=== PATIENT | female | born 1950 | race African-American/Black ===

== ENCOUNTER 2024-07-24 16:11 | Emergency (ER) | payer OTHER ==
[~2024-07-24] VITALS: Ht 165.1 cm; Wt 75.0 kg
[2024-07-24 16:14] VITALS: O2SAT 95
[2024-07-24] MEDS ORDERED: EPINEPHRINE 5 MG in SODIUM CHLORIDE 0.9% 245 ML IV STA (16:29)
[2024-07-24] MEDS: ASPIRIN 325MG TABLET PO ONE (16:30)
[2024-07-24] MEDS ORDERED: ATROPINE SULFATE 1MG/10ML SYR IV ONE (16:30)
[2024-07-24 16:53] LABS: BASOPHILS % 0.7 % (0.0-2.0); EOSINOPHILS % 2.5 % (0.0-5.0); HEMATOCRIT. 38.5 % (36.0-48.0); HEMOGLOBIN. 12.5 g/dL (12.0-16.0); LYMPHOCYTES % 42.2 % (20.0-50.0); MEAN CORPUSCULAR HEMOGLOBIN 27.7 pg (28.0-32.0); MEAN CORPUSCULAR HGB CONC 32.5 g/dL (31.0-37.0); MEAN CORPUSCULAR VOLUME 85.2 fL (81.0-99.0); MEAN PLATELET VOLUME 8.4 fl (7.4-10.4); MONOCYTES % 7.8 % (2.0-8.0); NEUTROPHILS % 46.8 % (40.0-76.0); PLATELET 327 x1000/uL (130-400); RED BLOOD CELL COUNT 4.52 mill/uL (4.2-5.4); WHITE BLOOD COUNT 7.2 x1000/uL (4.5-11.0)
[2024-07-24 17:00] LABS: CHLORIDE 104 mEq/L (98-107); POTASSIUM 3.6 mEq/L (3.5-5.1); SODIUM 140 mEq/L (136-145)
[2024-07-24] MEDS ORDERED: EPINEPHRINE 5 MG in SODIUM CHLORIDE 0.9% 245 ML IV PRN (17:00)
[2024-07-24 17:01] LABS: CARBON DIOXIDE 29 mEq/L (21-32)
[2024-07-24 17:02] LABS: CALCIUM 9.4 mg/dL (8.7-10.4)
[2024-07-24 17:06] LABS: CREATININE 1.5 mg/dL (0.6-1.0); GLUCOSE 140 mg/dL (70-105); TROPONIN I HIGH SENSITIVITY 8 ng/L (3.0-34); UREA NITROGEN BLOOD 21 mg/dL (9-23)
[2024-07-24] MEDS ORDERED: DOPAMINE 400MG/250ML PREMIX 250 ML IV PRN (17:30)
[2024-07-24] MEDS: SODIUM CHLORIDE 0.9% IV PRN (17:43)
[2024-07-24] MEDS: EPINEPHRINE IV PRN (17:43)
[2024-07-24 18:00] VITALS: TEMP 36.78072
[2024-07-24] MEDS ORDERED: ACETAMINOPHEN 325MG TABLET PO PRN (18:15)
[2024-07-24] MEDS ORDERED: IPRATROPIUM/ALBUTEROL 0.5-3(2.5)MG/3ML NEB HHN PRN (18:15)
[2024-07-24] MEDS ORDERED: DOCUSATE SODIUM 100MG CAPSULE PO PRN (18:15)
[2024-07-24] MEDS ORDERED: DEXTROSE 50% WATER 50ML SYRINGE IV PRN (18:45)
[2024-07-24] MEDS: SODIUM CHLORIDE 0.9% 1,000 ML IV SCH (19:03)
[2024-07-24 19:18] LABS: TRIGLYCERIDE 102 mg/dL (0-150)
[2024-07-24 19:19] LABS: LDL CHOLESTEROL 96 mg/dL (5-100)
[2024-07-24 19:20] LABS: CHOLESTEROL 151 mg/dL (<200); HDL CHOLESTEROL 33 mg/dL (>65); PHOSPHORUS 2.8 mg/dL (2.5-4.9)
[2024-07-24 19:24] LABS: T4 FREE 1.53 ng/dL (0.89-1.76); THYROID STIMULATING HORMONE 2.21 uIU/mL (0.55-4.78)
[2024-07-24 19:54] LABS: TROPONIN I HIGH SENSITIVITY 44 ng/L (3.0-34)
[2024-07-24] MEDS: ATORVASTATIN CALCIUM 20MG TABLET PO SCH (21:00)
[2024-07-24] MEDS: INSULIN LISPRO 100 UNITS/ML SUBCUT SCH (21:00)
[2024-07-24] MEDS ORDERED: NICARDIPINE 40MG/200ML PREMIX 200 ML IV PRN (21:15)
[2024-07-24] MEDS: BLOOD SUGAR DIAGNOSTIC STRIP TEST SCH (21:19)
[2024-07-24] MEDS: ENOXAPARIN 40MG/0.4ML SYR SUBCUT SCH (21:31)
[2024-07-24] MEDS: ACETAMINOPHEN 325MG TABLET PO PRN (22:14)
[2024-07-24] MEDS: ONDANSETRON HCL 4MG/2ML INJ IV PRN (22:21)
[2024-07-25 01:40] LABS: CREATINE KINASE MB FRACTION 2.4 ng/mL (0.5-3.6)
[2024-07-25 02:10] LABS: INR 1.1; PARTIAL THROMBOPLASTIN TIME 31.2 sec (23.4-31.0); PROTHROMBIN TIME 12.2 sec (9.6-11.0)
[2024-07-25] MEDS: AMLODIPINE 5MG TABLET PO SCH (09:04)
[2024-07-25 11:56] LABS: HEMATOCRIT 34.7 % (36.0-48.0); HEMOGLOBIN 11.3 g/dL (12.0-16.0); MEAN CORPUSCULAR HEMOGLOBIN 27.9 pg (28.0-32.0); MEAN CORPUSCULAR HGB CONC 32.7 g/dL (31.0-37.0); MEAN CORPUSCULAR VOLUME 85.5 fL (81.0-99.0); PLATELET 287 x1000/uL (130-400); RED BLOOD CELL COUNT 4.06 mill/uL (4.2-5.4); WHITE BLOOD COUNT 7.4 x1000/uL (4.5-11.0)
[2024-07-25 12:03] VITALS: TEMP 98.2
[2024-07-25 12:18] LABS: POTASSIUM 3.5 mEq/L (3.5-5.1)
[2024-07-25 12:19] LABS: CALCIUM 9.5 mg/dL (8.7-10.4)
[2024-07-25 12:21] LABS: POTASSIUM 3.5 mEq/L (3.5-5.1)
[2024-07-25 12:23] LABS: CALCIUM 9.4 mg/dL (8.7-10.4)
[2024-07-25 12:24] LABS: CREATININE 1.2 mg/dL (0.6-1.0)
[2024-07-25 12:26] LABS: CREATINE KINASE MB FRACTION 2.7 ng/mL (0.5-3.6)
[2024-07-25 12:27] LABS: CREATININE 1.2 mg/dL (0.6-1.0)
[2024-07-25 12:55] VITALS: BP 164/58; PULSE 76; RESP 20; O2SAT 97
== END 2024-07-25 12:57 | disposition left against medical advice (07) ==
LOC: ER 16:11 → EDBEDREQSVC 17:52 → EDBEDREQTM 17:52 → EDBEDREQ 17:52 → EDBEDREQSVC 07-25 08:42 → ER 07-25 12:57
DX: I44.2 Atrioventricular block, complete (principal); R55 Syncope and collapse; E78.5 Hyperlipidemia, unspecified; E11.9 Type 2 diabetes mellitus without complications; I11.9 Hypertensive heart disease without heart failure; D86.9 Sarcoidosis, unspecified; Z90.89 Acquired absence of other organs; Z79.899 Other long term (current) drug therapy; Z83.3 Family history of diabetes mellitus; Z88.2 Allergy status to sulfonamides; Z88.5 Allergy status to narcotic agent
CPT/HCPCS: 99291; 96361 ×2; 93970; 96374; 71045; 80061; 80048 ×2; 83036; 83880; 84439; 83735; 84100; 84443; 85025; 84484 ×2; 93005 ×2; 96372; 82553; 82962; 85027; 85610; 85730; 36415 ×2; J1650; J1815; J2405; J3490; J7050